=== PATIENT | female | born 1940 | race American Indian/Alaskan Native ===

== ENCOUNTER 2022-05-06 09:57 | Emergency (ER) | payer MEDICARE ==
[2022-05-06 12:34] VITALS: BP 68/10
--- NOTE | 2022-05-06 13:25 | Emergency Department Report ---
ED General Adult HPI - General Chief complaint: Weakness Stated complaint: WEAKNESS Time Seen by Provider: 05/06/22 11:18 Source: patient, EMS Mode of arrival: Stretcher Limitations: Physical Limitation, Other - History of Present Illness Initial comments: The patient presents to the emergency department via EMS for evaluation of failure to thrive. Per the patient's sister she states that for the last 2 weeks she has been going downhill. She called ambulance today to have her seen at the emergency department for evaluation of medical issues. The sister states the plan was originally to get her to go to her primary [facility] but she appeared to be too sick. On my initial evaluation of the patient as I entered the room she is nonresponsive she has a blood pressure of 55/34 with a heart rate of 34 bpm. -: unknown Improves with: none Worsens with: none Associated Symptoms: denies other symptoms Treatments Prior to Arrival: none - Related Data Allergies Allergy/AdvReac Type Severity Reaction Status Date / Time No Known Allergies Allergy Verified 05/06/22 10:22 ED Review of Systems ROS: Stated complaint: WEAKNESS Other details as noted in HPI Comment: Unobtainable due to pts medical conditions ED Past Medical Hx - Past Medical History Previous Medical History?: Yes Hx Hypertension: Yes Hx Diabetes: Yes Additional medical history: Dementia - Social History Smoking Status: Never Smoker Substance Use Type: None ED Physical Exam - General Limitations: Physical Limitation, Other General appearance: obtunded - Head Head exam: Present: atraumatic, normocephalic - Eye Eye exam: Absent: scleral icterus, conjunctival injection - ENT ENT exam: Present: mucous membranes dry - Neck Neck exam: Absent: lymphadenopathy, thyromegaly - Respiratory Respiratory exam: Present: decreased breath sounds - Cardiovascular Cardiovascular Exam: Present: normal rhythm, bradycardia - GI/Abdominal GI/Abdominal exam: Present: soft. Absent: distended, tenderness - Neurological Exam Neurological exam: Present: other (Unresponsive) - Psychiatric Psychiatric exam: Present: other (Not able to assess due to the patient's condition) - Skin Skin exam: Present: rash. Absent: warm, dry, intact, normal color ED Course Vital Signs 05/06/22 05/06/22 05/06/22 10:59 11:00 11:08 Pulse Rate 89 90 Respiratory 28 H 34 H 24 Rate Blood Pressure O2 Sat by Pulse 91 95 Oximetry 0905/06/22 05/06/22 11:15 11:31 11:45 Pulse Rate 83 38 L Respiratory 31 H 11 L 100 H Rate Blood Pressure 55/34 55/34 68/10 O2 Sat by Pulse Oximetry 05/06/22 12:00 Pulse Rate 103 H Respiratory 32 H Rate Blood Pressure O2 Sat by Pulse 100 Oximetry ED Medical Decision Making - Medical Decision Making Initial evaluation of the patient it was observed that the patient had stable vitals including hypotension and bradycardia. As I was talking to the patient's sister the patient heart rate went to 13 and a blood pressure was unmeasurable. At this time [facility] was called and staff entered the room to help with resuscitation. ACLS protocol was followed and central line was placed. Please see code sheet for details. Time of 11:59 AM Critical Care Time: Yes Critical care time in (mins) excluding proc time.: 35 Critical care attestation.: If time is entered above; I have spent that time in minutes in the direct care of this critically ill patient, excluding procedure time. ED Disposition Clinical Impression: Cardiac arrest Disposition: 20 Is pt being admited?: No Does the pt Need Aspirin: No Condition: Stable
[2022-05-06] MEDS ORDERED: SODIUM BICARB 8.4% 50 MEQ/50 ML SYRINGE IV ONE (21:15)
[2022-05-06] MEDS ORDERED: ATROPINE 0.1% (1 MG/10 ML) CARDIAC SYRINGE ONE (21:15)
[2022-05-06] MEDS ORDERED: AMIODARONE 150 MG/3 ML INJ IV ONE (21:15)
[2022-05-06] MEDS ORDERED: EPINEPHrine 1 MG/10 ML SYRINGE ONE (21:15)
[2022-05-06] MEDS ORDERED: CALCIUM CHLORIDE 1,000 MG/10 ML SYRINGE IV ONE (21:15)
[2022-05-06] MEDS ORDERED: DOPamine DRIP 800 MG/D5W 250ML PreMix IV ONE (21:15)
[2022-05-06] MEDS ORDERED: EPINEPHrine 30 MG/30 ML INJ IV ONE (21:15)
== END 2022-05-06 15:09 ==
LOC: ED 09:57
DX: I46.9 Cardiac arrest, cause unspecified (principal); I10 Essential (primary) hypertension; E11.9 Type 2 diabetes mellitus without complications; Z79.899 Other long term (current) drug therapy
CPT/HCPCS: 92950; 99291; J0171; J0282; J0461; J1265; J3490